=== PATIENT | female | born 1950 | race Caucasian/White ===

== ENCOUNTER → 2018-06-12 | Outpatient (CLI) | payer OTHER, BC ==
--- NOTE | 2018-06-12 12:53 | EKG ---
[address] [place] [address] ELECTROCARDIOGRAM REPORT Name: PRASHANT ROSE Room #: REG CLI NayeliNayeli#: [id number] Admission: 06/12/18 Attend Phys: Rocky Oneil MD, F Discharge: Date of : 52 Report #: [id number] THIS REPORT FOR: //name// [facility] Test Date: 2018-06-12 Test Time: 10:33:00 Pat Name: PRASHANT ROSE Department: Room: Gender: F Pile Driving Technician: Velma FERNANDEZ : 1950 Requested By: Rocky Oneil Order Number: [id number] MD: Lucien Adams Measurements Intervals [place] Rate: 69 P: 40 ME: 158 QRS: 7 QRSD: 81 T: 62 QT: 398 QTc: 427 Interpretive Statements Sinus rhythm Normal tracing No previous ECG available for comparison Electronically Signed On 06-12-2018 12:53:26 PICK UP DRIVER by Lucien Adams [email or web address] <ELECTRONICALLY SIGNED> By: Lucien Adams MD, [facility] 06/12/18 1253 1033 1033 Lucien Adams MD, FACC /EPI
== END ==
LOC: CV 09:43
DX: Z01.818 Encounter for other preprocedural examination (principal); I10 Essential (primary) hypertension